=== PATIENT | male | born 1940 | race Caucasian/White ===

== ENCOUNTER 2019-06-21 13:09 | Emergency (ER) | payer MEDICARE ==
[~2019-06-21] VITALS: Ht 167.6 cm; Wt 65.0 kg
[~2019-06-21 13:09] MED LIST: BACTRIM DS TABL1 TAB PO; DILAUDID4 MG PO; RESTORIL15 MG PO
[2019-06-21 13:31] VITALS: Ht 167.6 cm; Wt 65.0 kg
[2019-06-21] MEDS ORDERED: DICLOFENAC SODI50 MG PO (14:55)
[2019-06-21] MEDS ORDERED: CYCLOBENZAPRINE5 MG PO (14:55)
[2019-06-21 15:08] VITALS: BP 162/89
== END 2019-06-21 15:09 | disposition home or self-care (01) ==
LOC: D.ER 13:09
DX: R07.89 Other chest pain (principal); W11.XXXA Fall on and from ladder, initial encounter; M25.552 Pain in left hip